=== PATIENT | female | born 1980 | race Caucasian/White ===

== ENCOUNTER 2024-08-16 15:34 | Emergency (ER) | payer MEDICAID ==
[~2024-08-16] VITALS: Ht 160 cm; Wt 66.0 kg
[2024-08-16 15:36] VITALS: O2SAT 98
[2024-08-16] MEDS: IBUPROFEN 600MG TABLET PO ONE (16:48)
[2024-08-16 17:36] VITALS: BP 116/80; PULSE 90; RESP 18; TEMP 36.72516; O2SAT 97
== END 2024-08-16 17:37 | disposition home or self-care (01) ==
LOC: ER 15:34
DX: J06.9 Acute upper respiratory infection, unspecified (principal); E03.9 Hypothyroidism, unspecified; Z20.822 Contact with and (suspected) exposure to COVID-19; Z90.89 Acquired absence of other organs
CPT/HCPCS: 81025; 87426; 87804; 99283